=== PATIENT | female | born 1980 | race Two or more races ===

== ENCOUNTER 2024-08-11 14:42 | Outpatient (CLI) | payer OTHER | END 2024-08-11 14:51 | disposition home or self-care (01) | LOC: RAD 14:42 | PROVIDERS: ATTEND General Practice | DX: J32.1 Chronic frontal sinusitis (principal); H65.03 Acute serous otitis media, bilateral; R51.0 Headache with orthostatic component, not elsewhere classified ==

== ENCOUNTER 2024-08-13 12:18 | Outpatient (CLI) | payer OTHER ==
[2024-08-13 12:54] LABS: ob NEGATIVE (NEGATIVE)
[2024-08-13 13:03] LABS: FECAL LEUKOCYTES NEGATIVE (NEGATIVE)
== END 2024-08-13 12:23 | disposition home or self-care (01) ==
LOC: LAB 12:18
PROVIDERS: ATTEND General Practice
DX: Z12.11 Encounter for screening for malignant neoplasm of colon (principal); A05.1 Botulism food poisoning; B82.9 Intestinal parasitism, unspecified